=== PATIENT | female | born 1990 | race Caucasian/White ===

== ENCOUNTER 2018-12-28 05:28 | Inpatient (IN) | payer BC ==
[2018-12-28] VITALS (21 sets, daily range): BP systolic 95–131; BP diastolic 52–87; PULSE 67–96; TEMP 97.6–98.3
[~2018-12-28] VITALS: Ht 149.9 cm; Wt 84.1 kg
[~2018-12-28 05:28] MED LIST: LORTAB 5/500 501 TAB PO; NO HOME MEDICATIONS
--- NOTE | 2018-12-28 05:40 | NUR ---
arrives to unit ambulatory for repeat section. Pt reports good movement, denies LOF, vaginal bleeding, or contractions. Pt oriented to room, bed in low and locked position, call light within reach. Pt changed into clean gown. US and toco explained and applied. Plan of care reviewed. IV started in left wrist after 1 attempt, admission labs obtained off IV start. Lactated Ringers infusing to gravity. Consents reviewed and signed with patient and FOB.
[2018-12-28 06:04] LABS: MEAN CELL VOLUME 88 fl (80.0-100.0); MEAN CORPUSCULAR HEMOGLOBIN 29 pg (27.0-31.0); MEAN CORPUSCULAR HGB CONC 33 g/dl (33.0-37.0); MEAN PLATELET VOLUME 10.7 fl (7.4-10.4); PLATELET COUNT 243 K/mm3 (130-400); RED BLOOD COUNT 3.84 M/mm3 (4.10-5.30); REDCELL DISTRIBUTION WIDTH-CV 13.8 % (11.5-14.5)
[2018-12-28 06:06] LABS: HEMATOCRIT 33.6 % (37.0-47.0)
[2018-12-28 06:15] LABS: EOSINOPHIL 1 % (0-4); HYPOCHROMIA 1+; LYMPHOCYTE 17 % (20.0-51.0); NEUTROPHILS 75 % (42.0-75.2); NUCLEATED RED BLOOD CELL 1 (0-6); PLATELET ESTIMATE NORMAL (NORMAL)
[2018-12-28] MEDS ORDERED: ZANTAC 150MG T150 MG PO (06:15)
[2018-12-28] MEDS ORDERED: PRENATAL (06:15)
--- NOTE | 2018-12-28 06:30 | NUR ---
0630-Recieved report from MELISSA Busch patient [facility] with EFM in place. FHR baseline 140bpm, VSS. Assessment complete. IV to left wrist, LR infusing seee EMAR. 0651-off EFM. 0719-Ambulatory to OR.
[2018-12-28] MEDS ORDERED: PERCOCET 325 MG1 TA2 PO (07:21)
[2018-12-28] MEDS ORDERED: MOTRIN 800800 MG/TAB PO (07:21)
--- NOTE | 2018-12-28 08:20 | NUR ---
0820-Recieved report from Magnus GABRIEL. Patient to PACU via bed. A&Ox4. Abdominal Dressing C/D/I, reports no pain. VSS, see PACU flow record. Fundal massage firm, Lochia WNL. Yoo to DD, cear yellow urine. Assessment complete. Updated on plan of care. Tete, significant other in room.
--- NOTE | 2018-12-28 11:00 | NUR ---
1100-Telfa and paper tape with shadowing noted throughout border. Removed Telfa, incision well approximated, steri strips remain in place. New telfa and ABD to incision. Abdominal binder replaced.
--- NOTE | 2018-12-28 15:00 | NUR ---
1500-Ambulatory to bathroom with assits x1. Steady gait. Yoo discontinued.Delilah care assist. Updated on plan of care.
[2018-12-29 04:00] VITALS: BP 110/62; PULSE 60; TEMP 98.2
[2018-12-29 07:50] VITALS: BP 110/66; PULSE 76; TEMP 97.8
--- NOTE | 2018-12-29 10:55 | NUR ---
Initial visit; Patient thanked Oncology Social Work for offering congratulations and God's blessings for the of her son. Oncology Social Work thanked mom for choosing [facility].
[2018-12-29 16:08] VITALS: BP 120/64; PULSE 88; TEMP 98.1
[2018-12-29 20:00] VITALS: BP 111/72; PULSE 82; TEMP 98.6
[2018-12-30 07:26] VITALS: BP 110/72; PULSE 76; TEMP 97.4
== END 2018-12-30 15:00 | disposition home or self-care (01) | DRG 788 ==
LOC: OB 05:28
PROVIDERS: ADMIT Obstetrics & Gynecology
PROC: 10D00Z1 Extraction of Products of Conception, Low, Open Approach (ICD-10-PCS; principal; 2018-12-28)
DX: O34.211 Maternal care for low transverse scar from previous cesarean delivery (principal); O99.824 Streptococcus B carrier state complicating childbirth; O99.344 Other mental disorders complicating childbirth; F41.9 Anxiety disorder, unspecified; O99.214 Obesity complicating childbirth; K21.9 Gastro-esophageal reflux disease without esophagitis; O99.62 Diseases of the digestive system complicating childbirth; O69.81X0 Labor and delivery complicated by cord around neck, without compression, not applicable or unspecified; Z3A.39 39 weeks gestation of pregnancy; Z37.0 Single live birth
CPT/HCPCS: J0171; J0690; J1885; J2370; J2405; J2590; J2704; J3010; J7120

== ENCOUNTER 2019-04-13 21:37 | Observation (INO) | payer BC ==
[~2019-04-13] VITALS: Ht 152.4 cm; Wt 79.8 kg
[~2019-04-13 21:37] MED LIST changes: +MOTRIN 800800 MG/TAB PO; +PERCOCET 325 MG1 TA2 PO; +PRENATAL; +ZANTAC 150MG T150 MG PO
[2019-04-13 22:36] LABS: BASO # 0.1 (0.0-0.2); BASO % 0.5 % (0.0-2.0); EOS # 0.3 (0.0-0.7); EOS % 2.6 % (0-4.0); GRAN # 9.6 (1.4-6.5); GRAN % 74.8 % (42.2-75.2); HEMOGLOBIN 12.1 g/dl (12.5-16.0); LYMPH # 2.2 (1.2-3.4); MEAN CELL VOLUME 87 fl (80.0-100.0); MEAN CORPUSCULAR HEMOGLOBIN 28 pg (27.0-31.0); MEAN CORPUSCULAR HGB CONC 33 g/dl (33.0-37.0); MEAN PLATELET VOLUME 10.7 fl (7.4-10.4); MONO # 0.6 (0.1-0.6); MONO % 4.6 % (1.7-9.3); PLATELET COUNT 254 K/mm3 (130-400); RED BLOOD COUNT 4.26 M/mm3 (4.10-5.30); REDCELL DISTRIBUTION WIDTH-CV 14.5 % (11.5-14.5)
[2019-04-13 22:37] LABS: HEMATOCRIT 36.9 % (37.0-47.0)
[2019-04-13 23:12] LABS: ALANINE AMINOTRANSFERASE 96 U/L (9-52); ALBUMIN 4.4 gm/dL (3.5-5.0); ALKALINE PHOSPHATASE 114 U/L (50-136); ANION GAP 11 mmol/L (7-16); AST,SGOT 107 U/L (15-37); BLOOD UREA NITROGEN 22 mg/dL (7-17); C-REACTIVE PROTEIN < 0.5 mg/dL (0.0-0.9); CALCIUM 8.8 mg/dL (8.4-10.2); CARBON DIOXIDE 27 mmol/L (22-30); CHLORIDE 105 mmol/L (98-107); CREATININE, serum 0.82 (0.52-1.25); GLUCOSE 131 mg/dL (74-106); LIPASE 265 U/L (23-300); POTASSIUM 3.8 mmol/L (3.4-5.0); SODIUM 143 mmol/L (137-145); TOTAL PROTEIN 7.4 gm/dL (6.4-8.2)
[2019-04-14 00:48] LABS: COLLECTION METHOD CLEAN CATCH
[2019-04-14 01:02] LABS: MUCOUS Present /lpf; PH 6 (5-8); URINE APPEARANCE Clear; URINE BACTERIA None Seen /hpf; URINE BILIRUBIN Negative (NEGATIVE); URINE BLOOD 3+ (NEGATIVE); URINE COLOR Yellow; URINE GLUCOSE Negative (NEGATIVE); URINE KETONE Negative (NEGATIVE); URINE LEUKOCYTE ESTERASE Negative (NEGATIVE); URINE NITRATE Negative (NEGATIVE); URINE PROTEIN(semi-quant) Negative (NEGATIVE); URINE UROBILINOGEN >=4.0 mg/dL (NEGATIVE)
[2019-04-14 02:48] VITALS: BP 101/67; PULSE 64; TEMP 97.6
--- NOTE | 2019-04-14 03:30 | NUR ---
Patient arrived from ED via w/c, with RN. States pain 4/10. Due to NPO status, prn dilaudid given. Denies further needs at this time, states she wants to sleep. Will continue to monitor.
[2019-04-14] MEDS ORDERED: LEXAPRO 10MG10 MG PO (03:41)
[2019-04-14 07:23] VITALS: BP 97/63; PULSE 67; TEMP 98.6
[2019-04-14 11:48] VITALS: BP 109/65; PULSE 65; TEMP 98.3
[2019-04-14 11:54] LABS: HEMATOCRIT 35.5 % (37.0-47.0); HEMOGLOBIN 11.6 g/dl (12.5-16.0); MEAN CELL VOLUME 88 fl (80.0-100.0); MEAN CORPUSCULAR HEMOGLOBIN 29 pg (27.0-31.0); MEAN CORPUSCULAR HGB CONC 33 g/dl (33.0-37.0); MEAN PLATELET VOLUME 10.6 fl (7.4-10.4); PLATELET COUNT 213 K/mm3 (130-400); RED BLOOD COUNT 4.02 M/mm3 (4.10-5.30); REDCELL DISTRIBUTION WIDTH-CV 14.6 % (11.5-14.5)
--- NOTE | 2019-04-14 16:28 | NUR ---
THANH met with the patient to discuss discharge plan. The patient lives in [place] with her ex-boyfriend, Tete Pathak, and their three month-year- old. She works at [employer]. She reports independence with ADLs and does not have any DME. The patient does not have a PCP. She states that she utilizes [facility] and the [facility]. She receives her medications at [facility] and she reports no difficulties obtaining her meds. The patient's emergency contact is her mother, Jonelle Burdick (ph#[phone]). She states that her mother lives in [place]. The patient had questions about financial assistance through the hospital. THANH consulted Financial Counselor, Mray, and provided the patient with Financial Counseling's phone number. The patient's RN informed THANH that the patient reports she has increased depression. THANH discussed this with the patient. The patient reports that her and her boyfriend just broke up a week ago and that he is about to be deployed. She states that she is unsure if this is depression or just due to the recent events. She states that she has contacted [facility] and has an appointment with their psychiatrist on the . She had no other questions or concerns for SW. No additional needs at this time.
--- NOTE | 2019-04-14 16:42 | NUR ---
DISCHARGE INFORMATION PROVIDED. IV REMOVED WITHOUT ISSUES. NO QUESTIONS VOICED. PT STATED SHE WILL CALL US WHEN RIDE IS OUTSIDE TO ESCORT HARRIS
--- NOTE | 2019-04-14 17:00 | NUR ---
PT ESCORTED HARRIS BY THIS NURSE.
== END 2019-04-14 17:00 | disposition home or self-care (01) ==
LOC: COL.ER 21:37 → PEDS 04-14 00:52
PROVIDERS: Family Medicine; Nurse Practitioner; ADMIT Surgery
DX: R10.9 Unspecified abdominal pain (principal)
CPT/HCPCS: G0378; J1170; J2405; J7030; Q9967

== ENCOUNTER 2020-02-06 22:18 | Emergency (ER) | payer BC ==
[~2020-02-06] VITALS: Ht 152.4 cm; Wt 77.3 kg
[~2020-02-06 22:18] MED LIST changes: +LEXAPRO 10MG10 MG PO
[2020-02-06 22:25] VITALS: TEMP 98.6
[2020-02-06 23:29] LABS: BASO % 0.3 % (0.0-2.0); EOS # 0.4 (0.0-0.7); EOS % 3.6 % (0-4.0); GRAN # 7.5 (1.4-6.5); GRAN % 65.3 % (42.2-75.2); HEMATOCRIT 38.7 % (37.0-47.0); HEMOGLOBIN 13.1 g/dl (12.5-16.0); LYMPH # 2.9 (1.2-3.4); LYMPH % 24.8 % (20.0-51.0); MEAN CELL VOLUME 91 fl (80.0-100.0); MEAN CORPUSCULAR HEMOGLOBIN 31 pg (27.0-31.0); MEAN CORPUSCULAR HGB CONC 34 g/dl (33.0-37.0); MEAN PLATELET VOLUME 11.1 fl (7.4-10.4); MONO # 0.6 (0.1-0.6); MONO % 5.3 % (1.7-9.3); PLATELET COUNT 261 K/mm3 (130-400); RED BLOOD COUNT 4.27 M/mm3 (4.10-5.30); REDCELL DISTRIBUTION WIDTH-CV 12.8 % (11.5-14.5)
[2020-02-06 23:36] LABS: ALBUMIN 4.1 gm/dL (3.5-5.0); BILIRUBIN,TOTAL 1.1 mg/dL (0.0-1.0); CALCIUM 8.4 mg/dL (8.4-10.2); CREATININE, serum 0.61 (0.52-1.25); POTASSIUM 4.1 mmol/L (3.4-5.0); TOTAL PROTEIN 6.6 gm/dL (6.4-8.2)
[2020-02-07 00:28] LABS: COLLECTION METHOD CLEAN CATCH
[2020-02-07 00:35] LABS: MUCOUS Present /lpf; PH 5 (5-8); URINE APPEARANCE Clear; URINE BACTERIA None Seen /hpf; URINE BILIRUBIN Negative (NEGATIVE); URINE BLOOD Negative (NEGATIVE); URINE COLOR Yellow; URINE GLUCOSE Negative (NEGATIVE); URINE KETONE Negative (NEGATIVE); URINE LEUKOCYTE ESTERASE Negative (NEGATIVE); URINE NITRATE Negative (NEGATIVE); URINE PROTEIN(semi-quant) Negative (NEGATIVE); URINE RBC None Seen /hpf; URINE UROBILINOGEN Negative (NEGATIVE)
[2020-02-07] MEDS ORDERED: PEPCID40 MG PO ×2 (01:31→01:33)
[2020-02-07] MEDS ORDERED: PERCOCET 325 MG1 TA2 PO ×2 (01:31→01:33)
[2020-02-07 01:48] VITALS: BP 132/70; PULSE 68
== END 2020-02-07 01:48 | disposition home or self-care (01) ==
LOC: COL.ER 22:18
PROVIDERS: Emergency Medicine
DX: R10.11 Right upper quadrant pain (principal); Z32.02 Encounter for pregnancy test, result negative
CPT/HCPCS: J1170

== ENCOUNTER 2020-02-07 23:27 | Inpatient (IN) | payer BC ==
[~2020-02-07] VITALS: Ht 152.4 cm; Wt 78.2 kg
[~2020-02-07 23:27] MED LIST changes: +PEPCID40 MG PO
[2020-02-08 00:40] LABS: BASO % 0.4 % (0.0-2.0); EOS # 0.1 (0.0-0.7); EOS % 1.3 % (0-4.0); GRAN # 8.6 (1.4-6.5); GRAN % 77.5 % (42.2-75.2); HEMATOCRIT 37.7 % (37.0-47.0); HEMOGLOBIN 13.1 g/dl (12.5-16.0); LYMPH # 1.5 (1.2-3.4); LYMPH % 13.8 % (20.0-51.0); MEAN CELL VOLUME 89 fl (80.0-100.0); MEAN CORPUSCULAR HEMOGLOBIN 31 pg (27.0-31.0); MEAN CORPUSCULAR HGB CONC 35 g/dl (33.0-37.0); MEAN PLATELET VOLUME 10.5 fl (7.4-10.4); MONO # 0.7 (0.1-0.6); MONO % 6.6 % (1.7-9.3); PLATELET COUNT 246 K/mm3 (130-400); RED BLOOD COUNT 4.26 M/mm3 (4.10-5.30); REDCELL DISTRIBUTION WIDTH-CV 12.6 % (11.5-14.5)
[2020-02-08 00:49] LABS: BILIRUBIN,TOTAL 1.5 mg/dL (0.0-1.0); CALCIUM 8.7 mg/dL (8.4-10.2); CREATININE, serum 0.62 (0.52-1.25); POTASSIUM 3.8 mmol/L (3.4-5.0); TOTAL PROTEIN 6.7 gm/dL (6.4-8.2)
[2020-02-08 02:49] VITALS: BP 110/72; PULSE 77; TEMP 98.3
--- NOTE | 2020-02-08 03:21 | NUR ---
Arrived to surgical floor. Assessment complete. Lungs clear. Heart sounds normal. Bowels hypoactive with ABD pain at this time. Patient recently received morphine in ED. Rating pain 6/10 at this time. No edema noted in lower extremities. INT left AC infusing without complications. Patient orientated to surical floor. All questions answered. Orders from ED discontinued. Spoke with Dr. Aly. Add LR at 100ml/hr, Zosyn 3.375mg Q6H for 5 days, Dilaudid 0.5mg Q2H PRN pain, Zofran 4mg Q6H PRN nausea, and keep patient NPO. Patient updated on plan of care. Will monitor.
--- NOTE | 2020-02-08 03:37 | NUR ---
Patient rating pain 3/10. Provided with PRN dilaudid at this time.
--- NOTE | 2020-02-08 05:46 | NUR ---
Patient requested PRN dilaudid for 6/10 ABD pain. Required x2 doses during night total. Otherwise uneventful night. Remained NPO. Resting in bed this AM.
--- NOTE | 2020-02-08 07:22 | NUR ---
Report given to MELISSA Bautista
[2020-02-08 07:40] VITALS: BP 101/62; PULSE 69; TEMP 98.5
--- NOTE | 2020-02-08 08:00 | NUR ---
Patient resting in bed at this time. Patient has asked for PRN pain medication today but rests comfortably in the interem. Suggested patient might like to shower today, patient states she would shower later in the day. Denies further needs at this time, call light within reach.
[2020-02-08 11:38] LABS: BASO % 0.3 % (0.0-2.0); EOS # 0.1 (0.0-0.7); EOS % 1.4 % (0-4.0); GRAN # 6.4 (1.4-6.5); GRAN % 71.5 % (42.2-75.2); HEMOGLOBIN 11.7 g/dl (12.5-16.0); LYMPH # 1.8 (1.2-3.4); LYMPH % 19.6 % (20.0-51.0); MEAN CELL VOLUME 89 fl (80.0-100.0); MEAN CORPUSCULAR HEMOGLOBIN 31 pg (27.0-31.0); MEAN CORPUSCULAR HGB CONC 35 g/dl (33.0-37.0); MEAN PLATELET VOLUME 10.6 fl (7.4-10.4); MONO # 0.6 (0.1-0.6); MONO % 6.9 % (1.7-9.3); PLATELET COUNT 218 K/mm3 (130-400); RED BLOOD COUNT 3.77 M/mm3 (4.10-5.30); REDCELL DISTRIBUTION WIDTH-CV 12.8 % (11.5-14.5)
--- NOTE | 2020-02-08 11:39 | NUR ---
THANH met with the patient to discuss discharge plan. The patient lives in [place] with her , Robby Lee (ph#[phone]), and their [id number] son. She states that her is deployed right now and is in [place]. She states that her son is staying with a friend right now, who is also a daycare provider. She reports independence with ADLs and does not have any DME. The patient states that she does not have a PCP. She goes to [facility] if she needs anything. She receives her medications from [facility]. The patient plans to return home upon discharge. The patient's RN informed THANH that the patient had contacted the [place] [facility] to request for her to come home. Her RN spoke to the [facility] and wanted to know the patient's prognosis and condition. The phone and case number was provided to the patient's attending, Dr. Aly. Dr. Aly notified her RN that he has updated the [facility]. SW to follow as needed.
[2020-02-08 11:45] LABS: ALBUMIN 3.4 gm/dL (3.5-5.0); BILIRUBIN,TOTAL 1.5 mg/dL (0.0-1.0); CREATININE, serum 0.63 (0.52-1.25); POTASSIUM 3.6 mmol/L (3.4-5.0); TOTAL PROTEIN 5.8 gm/dL (6.4-8.2)
[2020-02-08 11:48] LABS: HEMATOCRIT 33.7 % (37.0-47.0)
[2020-02-08 12:20] VITALS: BP 109/65; PULSE 71; TEMP 98.6
--- NOTE | 2020-02-08 13:30 | NUR ---
Called MD to report marked increase in patient's reported pain level. Administered PRN pain medication per order and patient called within half an hour reporting pain in the epigastric region that she rated 10/10. Recieved TORB for additional pain medication. Upon entering patient's room to administer medication patient was hysterical. Was able to get patient to calm enough with breating exercises and conversation to be able to settle and take her medications. VS WNL. Patient showered with intermittent supervision and was able to rest calmly afterward. Call light within reach.
--- NOTE | 2020-02-08 14:22 | NUR ---
Several visit attempts; Medical Assistant left "Prayer Card," and information regarding the availability of spiritual care at our hospital.
[2020-02-08 16:56] VITALS: BP 138/74; PULSE 55; TEMP 98.5
--- NOTE | 2020-02-08 17:41 | NUR ---
Patient currently resting in bed. Reports she still has pain rated 9/10, falls asleep easily and rouses easily. Patient asks if she can have dinner [facility] Informed patient that she had a clear liquid diet until midnight and a tray had been ordered. Took her ice water and jello while she waits. Patient denies further needs at this time, call light within reach.
[2020-02-08 19:41] VITALS: BP 121/78; PULSE 61; TEMP 98.4
--- NOTE | 2020-02-08 20:15 | NUR ---
Pt. laying in bed at this time. Pt. is A&OX3, assessment complete. IV to lt. ac patent, IV fluids infusing per orders. Pt. reports abd. pain at a 5 on pain scale, gave pain meds per orders. Pt. denies further needs, call light within reach.
[2020-02-08 23:50] VITALS: BP 96/73; PULSE 76; TEMP 98.8
[2020-02-09] VITALS (17 sets, daily range): BP systolic 89–125; BP diastolic 57–75; PULSE 62–93; TEMP 98.6–99
[2020-02-09 06:26] LABS: HEMOGLOBIN 12.7 g/dl (12.5-16.0); MEAN CELL VOLUME 90 fl (80.0-100.0); MEAN CORPUSCULAR HEMOGLOBIN 31 pg (27.0-31.0); MEAN CORPUSCULAR HGB CONC 35 g/dl (33.0-37.0); MEAN PLATELET VOLUME 10.8 fl (7.4-10.4); PLATELET COUNT 244 K/mm3 (130-400); RED BLOOD COUNT 4.06 M/mm3 (4.10-5.30); REDCELL DISTRIBUTION WIDTH-CV 12.6 % (11.5-14.5)
[2020-02-09 06:28] LABS: INR 1.2 (0.8-3.0); PROTHROMBIN TIME 12.9 SECONDS (9.7-12.8)
[2020-02-09 06:35] LABS: HEMATOCRIT 36.6 % (37.0-47.0)
[2020-02-09 06:39] LABS: ALBUMIN 3.7 gm/dL (3.5-5.0); BILIRUBIN,TOTAL 5.1 mg/dL (0.0-1.0); CALCIUM 8.5 mg/dL (8.4-10.2); CREATININE, serum 0.52 (0.52-1.25); POTASSIUM 3.5 mmol/L (3.4-5.0); TOTAL PROTEIN 6.4 gm/dL (6.4-8.2)
[2020-02-09] MEDS ORDERED: PERCOCET 325 MG1 TA2 PO (10:14)
[2020-02-09] MEDS ORDERED: AMOXICILLIN 8751 TAB PO (10:17)
[2020-02-09] MEDS ORDERED: MOTRIN 600600 MG/TAB PO (10:18)
--- NOTE | 2020-02-09 17:49 | NUR ---
Patient off floor at approximately 0730 to the OR for cholecystectomy and arrived back to floor from PACU via bed at approximately 1000. Patient was sleepy but alert, roused easily and was alert and oriented while awake. Post op checks were initated. Patient left floor with endoscopy nurse at approximately 1300 for ERCP. Patient returned to floor from endo via bed at approximately 1415. Patient was alert and oriented, reported that she felt much better, denied pain or needs. Post op checks initiated. Patient had gag reflex present, given clear liquids and tolerated well. Low fat diet entered for dinner. Patient ate 100% of dinner tray, tolerated well, no indications of nausea. Patient denies further needs at this time, call light within reach.
--- NOTE | 2020-02-09 18:38 | NUR ---
Discharge teaching completed. Discussed discharge medications, discharge appointment, and discharge instructions. Questions asked and answered. INT removed, catheter intact, hemostasis achieved. Patient dressed and states she will call when transportation is here. Call light within reach.
--- NOTE | 2020-02-09 18:59 | NUR ---
Patient escorted to ED entrance via wheelchair.
== END 2020-02-09 19:00 | disposition home or self-care (01) | DRG 419 ==
LOC: COL.ER 23:27 → SURG 02-08 00:47
PROVIDERS: Emergency Medicine; ADMIT Surgery
PROC: 0FT44ZZ Resection of Gallbladder, Percutaneous Endoscopic Approach (ICD-10-PCS; principal; 2020-02-08)
PROC: BF121ZZ Fluoroscopy of Gallbladder using Low Osmolar Contrast (ICD-10-PCS; 2020-02-08)
DX: K80.62 Calculus of gallbladder and bile duct with acute cholecystitis without obstruction (principal)
CPT/HCPCS: OP; C1769; J0690; J1100; J1170; J1885; J2250; J2270; J2405; J2543; J2704; J3010; J7030; J7120; Q9967

== ENCOUNTER → 2020-02-09 | Emergency (ER) | payer BC ==
[~2020-02-09] MED LIST changes: +AMOXICILLIN 8751 TAB PO; +BENTYL 20MG20 MG/TAB PO; +MOTRIN 600600 MG/TAB PO; +REGLAN 10MG10 MG/TAB PO
== END ==
LOC: COL.ER 21:56
DX: Z00.00 Encounter for general adult medical examination without abnormal findings (principal)

== ENCOUNTER 2020-02-11 21:07 | Emergency (ER) | payer BC ==
[~2020-02-11] VITALS: Ht 152.4 cm; Wt 75.0 kg
[~2020-02-11 21:07] MED LIST changes: -BENTYL 20MG20 MG/TAB PO; -REGLAN 10MG10 MG/TAB PO
[2020-02-11 22:00] LABS: COLLECTION METHOD CLEAN CATCH
[2020-02-11 22:04] LABS: BASO # 0.1 (0.0-0.2); BASO % 0.6 % (0.0-2.0); EOS # 0.4 (0.0-0.7); EOS % 4.5 % (0-4.0); GRAN # 5.6 (1.4-6.5); GRAN % 67.5 % (42.2-75.2); HEMATOCRIT 40.5 % (37.0-47.0); HEMOGLOBIN 13.7 g/dl (12.5-16.0); LYMPH # 1.7 (1.2-3.4); LYMPH % 20.8 % (20.0-51.0); MEAN CELL VOLUME 91 fl (80.0-100.0); MEAN CORPUSCULAR HEMOGLOBIN 31 pg (27.0-31.0); MEAN CORPUSCULAR HGB CONC 34 g/dl (33.0-37.0); MEAN PLATELET VOLUME 10.3 fl (7.4-10.4); MONO # 0.5 (0.1-0.6); MONO % 5.8 % (1.7-9.3); PLATELET COUNT 316 K/mm3 (130-400); RED BLOOD COUNT 4.43 M/mm3 (4.10-5.30); REDCELL DISTRIBUTION WIDTH-CV 13.5 % (11.5-14.5)
[2020-02-11 22:15] LABS: ALBUMIN 4.4 gm/dL (3.5-5.0); BILIRUBIN,TOTAL 1.7 mg/dL (0.0-1.0); CALCIUM 9.2 mg/dL (8.4-10.2); CREATININE, serum 0.68 (0.52-1.25); TOTAL PROTEIN 7.5 gm/dL (6.4-8.2)
[2020-02-11 22:17] LABS: MUCOUS Present /lpf; PH 6 (5-8); URINE APPEARANCE Hazy; URINE BACTERIA None Seen /hpf; URINE BILIRUBIN Negative (NEGATIVE); URINE BLOOD Negative (NEGATIVE); URINE CALCIUM OXALATE CRYSTAL Present /hpf; URINE COLOR Amber; URINE GLUCOSE Negative (NEGATIVE); URINE KETONE Trace (NEGATIVE); URINE LEUKOCYTE ESTERASE Negative (NEGATIVE); URINE NITRATE Negative (NEGATIVE); URINE PROTEIN(semi-quant) Negative (NEGATIVE); URINE RBC 0-2 /hpf
[2020-02-11] MEDS ORDERED: REGLAN 10MG10 MG/TAB PO (23:58)
[2020-02-11] MEDS ORDERED: BENTYL 20MG20 MG/TAB PO (23:58)
[2020-02-12 00:30] VITALS: BP 136/78; PULSE 74; TEMP 97.9
== END 2020-02-12 00:31 | disposition home or self-care (01) ==
LOC: COL.ER 21:07
PROVIDERS: Emergency Medicine
DX: G89.18 Other acute postprocedural pain (principal); Z53.31 Laparoscopic surgical procedure converted to open procedure
CPT/HCPCS: J2270; Q9967